=== PATIENT | female | born 1955 | race Caucasian/White ===

== ENCOUNTER 2021-06-12 12:06 | Emergency (ER) | payer MEDICARE ==
[~2021-06-12] VITALS: Ht 162.6 cm; Wt 80.3 kg
[2021-06-12] MEDS ORDERED: CASIRIVIMAB/IMDEVIMAB 10 ML in SODIUM CHLORIDE 0.9% 100 ML IV ONE (12:30)
== END 2021-06-12 14:26 | disposition home or self-care (01) ==
LOC: ER 12:23
DX: U07.1 COVID-19 (principal); R05.9 Cough, unspecified
CPT/HCPCS: 99283; J7050